=== PATIENT | male | born 1995 | race Caucasian/White ===

== ENCOUNTER 2017-04-27 23:49 | Emergency (ER) | payer OTHER ==
[~2017-04-27] VITALS: Ht 172.7 cm; Wt 71.8 kg
[~2017-04-27 23:49] MED LIST: LEVOXYL0.075 MG PO; NORCO 325 MG-51 TAB PO
[2017-04-27 23:52] VITALS: BP 128/63; PULSE 61; TEMP 97.9
== END 2017-04-28 01:12 | disposition home or self-care (01) ==
LOC: COL.ER 23:49
DX: S90.32XA Contusion of left foot, initial encounter (principal); W50.0XXA Accidental hit or strike by another person, initial encounter; Y93.66 Activity, soccer; Y92.830 Public park as the place of occurrence of the external cause

== ENCOUNTER 2019-04-27 17:39 | Emergency (ER) | payer OTHER ==
[~2019-04-27] VITALS: Ht 170.2 cm; Wt 77.3 kg
[~2019-04-27 17:39] MED LIST changes: +ZOFRAN ODT4 MG PO
[2019-04-27 17:44] VITALS: BP 129/75
[2019-04-27] MEDS ORDERED: NORCO 325 MG-51 TAB PO (18:48)
[2019-04-27 19:12] VITALS: PULSE 82; TEMP 98.2
== END 2019-04-27 19:15 | disposition home or self-care (01) ==
LOC: COL.ER 17:39
DX: S83.92XA Sprain of unspecified site of left knee, initial encounter (principal); X50.1XXA Overexertion from prolonged static or awkward postures, initial encounter; Y92.830 Public park as the place of occurrence of the external cause; Y93.66 Activity, soccer
CPT/HCPCS: L1846

== ENCOUNTER 2019-07-10 19:59 | Emergency (ER) | payer OTHER ==
[~2019-07-10] VITALS: Ht 170.2 cm; Wt 79.5 kg
[2019-07-10 20:03] VITALS: BP 133/64
[2019-07-10 20:36] LABS: STREP SCREEN NEGATIVE
[2019-07-10] MEDS ORDERED: TAMIFLU 75MG75 MG PO (21:07)
[2019-07-10 21:20] VITALS: PULSE 80; TEMP 101.2
== END 2019-07-10 21:20 | disposition home or self-care (01) ==
LOC: COL.ER 19:59
PROVIDERS: Physician Assistant
DX: J11.1 Influenza due to unidentified influenza virus with other respiratory manifestations (principal)